=== PATIENT | female | born 1940 | race Caucasian/White ===

== ENCOUNTER 2016-10-21 16:59 | Emergency (ER) | payer MEDICARE ==
[~2016-10-21] VITALS: Ht 154.9 cm; Wt 88.9 kg
[2016-10-21] MEDS ORDERED: PERCOCET 325 MG1 TA2 PO (19:17)
== END 2016-10-21 19:24 | disposition home or self-care (01) ==
LOC: ED 16:59
DX: S42.215A Unspecified nondisplaced fracture of surgical neck of left humerus, initial encounter for closed fracture (principal); Z88.1 Allergy status to other antibiotic agents; W18.09XA Striking against other object with subsequent fall, initial encounter; Y93.89 Activity, other specified; Y92.59 Other trade areas as the place of occurrence of the external cause; Y99.9 Unspecified external cause status